=== PATIENT | male | born 1955 | race Caucasian/White ===

== ENCOUNTER → 2019-01-09 | Outpatient (CLI) | payer OTHER | LOC: HYPER 06:31 | DX: E11.622 Type 2 diabetes mellitus with other skin ulcer (principal); L97.811 Non-pressure chronic ulcer of other part of right lower leg limited to breakdown of skin; E11.621 Type 2 diabetes mellitus with foot ulcer; L97.411 Non-pressure chronic ulcer of right heel and midfoot limited to breakdown of skin; I87.2 Venous insufficiency (chronic) (peripheral); I10 Essential (primary) hypertension; I65.29 Occlusion and stenosis of unspecified carotid artery; I25.10 Atherosclerotic heart disease of native coronary artery without angina pectoris; N20.0 Calculus of kidney; L03.90 Cellulitis, unspecified; E78.5 Hyperlipidemia, unspecified; G35 Multiple sclerosis; R60.0 Localized edema; F17.200 Nicotine dependence, unspecified, uncomplicated; F19.10 Other psychoactive substance abuse, uncomplicated ==

== ENCOUNTER → 2019-01-23 | Outpatient (CLI) | payer OTHER | LOC: HYPER 07:12 | DX: E11.622 Type 2 diabetes mellitus with other skin ulcer (principal); L97.811 Non-pressure chronic ulcer of other part of right lower leg limited to breakdown of skin; E11.621 Type 2 diabetes mellitus with foot ulcer; L97.411 Non-pressure chronic ulcer of right heel and midfoot limited to breakdown of skin; I87.2 Venous insufficiency (chronic) (peripheral); I10 Essential (primary) hypertension; I65.29 Occlusion and stenosis of unspecified carotid artery; E78.5 Hyperlipidemia, unspecified; I25.10 Atherosclerotic heart disease of native coronary artery without angina pectoris; N20.0 Calculus of kidney; L03.90 Cellulitis, unspecified; G35 Multiple sclerosis; R60.0 Localized edema; F17.200 Nicotine dependence, unspecified, uncomplicated ==

== ENCOUNTER → 2019-02-06 | Outpatient (CLI) | payer OTHER | LOC: HYPER 06:55 | DX: E11.621 Type 2 diabetes mellitus with foot ulcer (principal); L97.411 Non-pressure chronic ulcer of right heel and midfoot limited to breakdown of skin; S81.802D Unspecified open wound, left lower leg, subsequent encounter; I10 Essential (primary) hypertension; I87.2 Venous insufficiency (chronic) (peripheral); I65.29 Occlusion and stenosis of unspecified carotid artery; N20.0 Calculus of kidney; L03.90 Cellulitis, unspecified; E78.5 Hyperlipidemia, unspecified; G35 Multiple sclerosis; R60.0 Localized edema; F19.10 Other psychoactive substance abuse, uncomplicated; F17.200 Nicotine dependence, unspecified, uncomplicated; X58.XXXD Exposure to other specified factors, subsequent encounter ==

== ENCOUNTER → 2019-02-22 | Outpatient (CLI) | payer OTHER | LOC: HYPER 06:53 | DX: E11.621 Type 2 diabetes mellitus with foot ulcer (principal); L97.411 Non-pressure chronic ulcer of right heel and midfoot limited to breakdown of skin; E78.5 Hyperlipidemia, unspecified; R60.0 Localized edema; G35 Multiple sclerosis; I87.2 Venous insufficiency (chronic) (peripheral); I10 Essential (primary) hypertension; I65.29 Occlusion and stenosis of unspecified carotid artery; I25.10 Atherosclerotic heart disease of native coronary artery without angina pectoris; N20.0 Calculus of kidney; F17.200 Nicotine dependence, unspecified, uncomplicated ==

== ENCOUNTER → 2019-03-13 | Outpatient (CLI) | payer OTHER | LOC: HYPER 06:51 | DX: E11.621 Type 2 diabetes mellitus with foot ulcer (principal); L97.511 Non-pressure chronic ulcer of other part of right foot limited to breakdown of skin; G35 Multiple sclerosis; I87.2 Venous insufficiency (chronic) (peripheral); I10 Essential (primary) hypertension; I65.29 Occlusion and stenosis of unspecified carotid artery; I25.10 Atherosclerotic heart disease of native coronary artery without angina pectoris; E78.5 Hyperlipidemia, unspecified; N20.0 Calculus of kidney; L03.90 Cellulitis, unspecified; R60.0 Localized edema; F10.10 Alcohol abuse, uncomplicated; F17.200 Nicotine dependence, unspecified, uncomplicated ==

== ENCOUNTER → 2019-05-08 | Outpatient (CLI) | payer OTHER | LOC: HYPER 03-30 10:46 | DX: E11.622 Type 2 diabetes mellitus with other skin ulcer (principal); L97.821 Non-pressure chronic ulcer of other part of left lower leg limited to breakdown of skin; L97.811 Non-pressure chronic ulcer of other part of right lower leg limited to breakdown of skin; S81.802A Unspecified open wound, left lower leg, initial encounter; L03.90 Cellulitis, unspecified; R60.0 Localized edema; G35 Multiple sclerosis; I87.2 Venous insufficiency (chronic) (peripheral); I10 Essential (primary) hypertension; I65.29 Occlusion and stenosis of unspecified carotid artery; I25.10 Atherosclerotic heart disease of native coronary artery without angina pectoris; E78.5 Hyperlipidemia, unspecified; N20.0 Calculus of kidney; F17.200 Nicotine dependence, unspecified, uncomplicated; X58.XXXA Exposure to other specified factors, initial encounter; Y93.89 Activity, other specified; Y92.89 Other specified places as the place of occurrence of the external cause; Y99.8 Other external cause status ==

== ENCOUNTER → 2019-06-14 | Outpatient (CLI) | payer OTHER | LOC: HYPER 13:32 | DX: E11.622 Type 2 diabetes mellitus with other skin ulcer (principal); L97.821 Non-pressure chronic ulcer of other part of left lower leg limited to breakdown of skin; R60.0 Localized edema; G35 Multiple sclerosis; I87.2 Venous insufficiency (chronic) (peripheral); I10 Essential (primary) hypertension; I65.29 Occlusion and stenosis of unspecified carotid artery; I25.10 Atherosclerotic heart disease of native coronary artery without angina pectoris; E78.5 Hyperlipidemia, unspecified; N20.0 Calculus of kidney; L03.90 Cellulitis, unspecified; F19.10 Other psychoactive substance abuse, uncomplicated; F17.200 Nicotine dependence, unspecified, uncomplicated ==